=== PATIENT | female | born 1935 | race Hispanic/Latino ===

== ENCOUNTER → 2018-04-06 | Outpatient (CLI) | payer OTHER | END | disposition home or self-care (01) | LOC: RAH 12:21 | PROVIDERS: ATTEND Internal Medicine | DX: J84.10 Pulmonary fibrosis, unspecified (principal); I10 Essential (primary) hypertension | CPT/HCPCS: 71250 ==

== ENCOUNTER → 2019-03-07 | Outpatient (CLI) | payer OTHER ==
[~2019-03-07] MED LIST: AMLO5TAB9 PO; ASPI-1114 PO; AZIT250T9 PO; GLUC100019 PO; HYDR12.54 PO; LEVO50TA11 PO; LOVA10TA2 PO; METF-444 PO; METO100T14 PO; OMEP-50 PO
== END | disposition home or self-care (01) ==
LOC: RAH 16:04
PROVIDERS: ATTEND Internal Medicine
DX: R05 Cough (principal)
CPT/HCPCS: 71046

== ENCOUNTER → 2020-08-02 | Outpatient (CLI) | payer OTHER ==
[~2020-08-02] MED LIST changes: +AMLO-257 PO; -AMLO5TAB9 PO; -AZIT250T9 PO; +LEVO750T46 PO; -OMEP-50 PO; +OMEP20CA12 PO; +PRED20TA3 PO
== END | disposition home or self-care (01) ==
LOC: OIH 12:59
PROVIDERS: ATTEND Internal Medicine
DX: M85.80 Other specified disorders of bone density and structure, unspecified site (principal)
CPT/HCPCS: 73030